=== PATIENT | female | born 1990 | race Caucasian/White ===

== ENCOUNTER 2016-11-04 12:41 | Emergency (ER) | payer MEDICAID ==
[2016-11-04] MEDS ORDERED: IBUPROFEN 800 MG TABLET PO ONE (13:01)
--- NOTE | 2016-11-04 13:44 | RADIOLOGY REPORT (SQ) ---
EXAM DESCRIPTION: TOE RIGHT COMPLETED DATE/TIME: 11/04/2016 1:20 pm REASON FOR STUDY: r 4th toe, iron fell on toe COMPARISON: None. NUMBER OF VIEWS: Three views. TECHNIQUE: AP and oblique images acquired of the right fourth toe. LIMITATIONS: None. FINDINGS: MINERALIZATION: Normal. BONES: There is a subtle oblique lucency at the level of the middle phalanx of the 4th digit which I cannot exclude as fracture. Clinical correlation is recommended. No other evidence for fracture is seen. JOINTS: No effusions. SOFT TISSUES: No soft tissue swelling. No foreign body. OTHER: No other significant finding. IMPRESSION: Subtle oblique lucency at the level of the middle phalanx of the 4th digit which I canno t exclude as a fracture. Clinical correlation is recommended. Other findings as noted above COMMENT: SITE OF TRAUMA/COMPLAINT MARKED/STAMP COMPLETED: No TECHNICAL DOCUMENTATION: JOB ID: [id number] [employer]- All Rights Reserved
[2016-11-04 14:06] VITALS: BP 110/63
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
== END 2016-11-04 14:15 | disposition home or self-care (01) ==
LOC: ER 12:41
DX: S92.524A Nondisplaced fracture of middle phalanx of right lesser toe(s), initial encounter for closed fracture (principal); W20.8XXA Other cause of strike by thrown, projected or falling object, initial encounter; F17.200 Nicotine dependence, unspecified, uncomplicated
CPT/HCPCS: 99283; 73660; J3490

== ENCOUNTER 2017-11-18 16:30 | Emergency (ER) | payer SELFPAY ==
[2017-11-18] MEDS ORDERED: TETRACAINE HCL 0.5% OPH SOLN 2 ML OS ONE (16:54)
--- NOTE | 2017-11-18 16:55 | ER Document Report ---
HPI - HPI Patient complains to provider of: left eye irritation Onset: Other Quality of pain: Achy - irritated Severity: Moderate Pain Level: 3 Context: She presents to the emergency department with complaints of left eye irritation and drainage. Patient reports approximately 3 days ago her eye started feeling weird. She took out her contacts. She reports increased irritation since that time. Denies other symptoms such as fever vomiting diarrhea Associated Symptoms: None Exacerbated by: Denies Relieved by: Denies Similar symptoms previously: No Recently seen / treated by doctor: No - EENT EENT: REPORTS: Eye problems - REPRODUCTIVE Reproductive: REPORTS: : Past Medical History - General Information source: Patient - Social History Smoking Status: Current Every Day Smoker Chew tobacco use (# tins/day): No Frequency of alcohol use: Rare Drug Abuse: None Family History: Reviewed & Not Pertinent Patient has suicidal ideation: No Patient has homicidal ideation: No Renal/ Medical History: Denies: Hx Peritoneal Dialysis Skin Medical History: Reports Hx Psoriasis Psychiatric Medical History: Reports: Hx Anxiety, Hx Depression Past Surgical History: Reports: Hx Oral Surgery - Immunizations Immunizations up to date: Yes Hx Diphtheria, Pertussis, Tetanus Vaccination: Yes Vertical Provider Document - CONSTITUTIONAL Agree With Documented VS: Yes Exam Limitations: No Limitations General Appearance: WD/WN, No Apparent Distress - INFECTION CONTROL TRAVEL OUTSIDE OF THE [place] IN LAST 30 DAYS: No - HEENT HEENT: Atraumatic, Normocephalic, PERRLA. negative: Conjuctival Injection - NECK Neck: Normal Inspection, Supple - RESPIRATORY Respiratory: No Respiratory Distress - CARDIOVASCULAR Cardiovascular: Regular Rate - MUSCULOSKELETAL/EXTREMETIES Musculoskeletal/Extremeties: MAEW, FROM - NEURO Level of Consciousness: Awake, Alert, Appropriate Motor/Sensory: No Motor Deficit - DERM Integumentary: Warm, Dry Course - Vital Signs Vital signs: Temp Pulse Resp BP Pulse Ox 98.8 F 105 H 16 118/72 99 11/18/17 16:39 11/18/17 16:39 11/18/17 16:39 11/18/17 16:39 11/18/17 16:39 Procedures - Eye Procedure Left Eye Irrigated w/ Saline (ccs): 10 Alcaine Drops Administered: Yes Fluorescein applied: Left Antibiotic Oinment/Drps Admin: Left eye Slit lamp used: No Notes: 11/18/17 18:20 elaine lamp utilized, pt reported immediate relief of irritation after tetracaine applied Discharge - Discharge Clinical Impression: Irritation of left eye Abrasion of conjunctiva, left Qualifiers: Encounter type: initial encounter Qualified Code(s): S05.02XA - Injury of conjunctiva and corneal abrasion without foreign body, left eye, initial encounter Condition: Stable Disposition: HOME, SELF-CARE Instructions: Erythromycin ([facility]), Opthalmology Additional Instructions: *You have been evaluated for eye irritation, Conjunctival abrasion *Use eye ointment as prescribed *Good hand washing *Do not wear your contacts until follow up with structural test engineer *Follow up with an structural test engineer *Return to ED for worsening condition, changes, needs Referrals: ADÁN ATKINSON MD [ACTIVE STAFF] - Follow up as needed
[2017-11-18 17:34] VITALS: BP 117/71
[2017-11-18] MEDS ORDERED: ERYTHROMYCIN 0.5% OPH OINTMENT 3.5 GM (ER DISP) OD SCH (18:00)
== END 2017-11-18 17:48 | disposition home or self-care (01) ==
LOC: ER 16:30
DX: S05.02XA Injury of conjunctiva and corneal abrasion without foreign body, left eye, initial encounter (principal); X58.XXXA Exposure to other specified factors, initial encounter; H57.8 Other specified disorders of eye and adnexa; F17.200 Nicotine dependence, unspecified, uncomplicated
CPT/HCPCS: 99283

== ENCOUNTER 2020-01-21 22:13 | Emergency (ER) | payer MEDICAID ==
[2020-01-21 22:23] VITALS: BP 145/82
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
[2020-01-22] MEDS ORDERED: LIDOCAINE 2% VISCOUS SOLN 15 ML UDCUP PO ONE (04:41)
== END 2020-01-22 05:05 | disposition home or self-care (01) ==
LOC: ER 22:13
DX: O9A.211 Injury, poisoning and certain other consequences of external causes complicating pregnancy, first trimester (principal); T65.891A Toxic effect of other specified substances, accidental (unintentional), initial encounter; T30.0 Burn of unspecified body region, unspecified degree; Y93.89 Activity, other specified; Y92.832 Beach as the place of occurrence of the external cause; O99.711 Diseases of the skin and subcutaneous tissue complicating pregnancy, first trimester; L40.9 Psoriasis, unspecified; O99.331 Smoking (tobacco) complicating pregnancy, first trimester; F17.200 Nicotine dependence, unspecified, uncomplicated; Z3A.01 Less than 8 weeks gestation of pregnancy
CPT/HCPCS: 99283; J3490

== ENCOUNTER 2020-04-23 13:54 | Emergency (ER) | payer MEDICAID ==
--- NOTE | 2020-04-23 15:51 | ER Document Report ---
ED Medical Screen (RME) - General Chief Complaint: Fall Injury Stated Complaint: FELL AND HIT HEAD Time Seen by Provider: 04/23/20 15:44 Primary Care Provider: ADÁN ATKINSON MD [Primary Care Provider] - Follow up as needed Mode of Arrival: Wheelchair Information source: Patient Notes: HPI; 29-year-old female presents to the emergency room after slip and fall at home hitting her head on the floor and passing out. States she has a laceration to the back of her head. Her tetanus is up-to-date. Planing of head and neck pain. No nausea, no vomiting. Denies any chance of . PE: Alert and oriented x3. PERRLA, EOMI negative for raccoon eyes, negative sheikh signs. Hematoma noted to the posterior scalp. Unable to fully evaluate laceration in triage. Nontender to cervical spine on palpation there is pain with lateral movement to the neck. There is no step-offs, no deformities noted. Lungs: Clear to auscultation without rales, rhonchi, wheezes. Heart: Tachycardic without murmurs, rubs, gallops. I have greeted and performed a rapid initial assessment of this patient. A comprehensive ED assessment and evaluation of the patient, analysis of test results and completion of the medical decision making process will be conducted by additional ED providers. I have specifically instructed the patient or family members with the patient to immediately return to any nursing staff should anything change in the patient's condition or with their chief complaint. TRAVEL OUTSIDE OF THE [place] IN LAST 30 DAYS: No - Related Data Allergies/Adverse Reactions: No Known Allergies Allergy (Verified 04/23/20 15:44) Past Medical History - Social History Frequency of alcohol use: Occasional Renal/ Medical History: Denies: Hx Peritoneal Dialysis Skin Medical History: Reports Hx Psoriasis Psychiatric Medical History: Reports: Hx Anxiety, Hx Depression Past Surgical History: Reports: Hx Oral Surgery - Immunizations Immunizations up to date: Yes Hx Diphtheria, Pertussis, Tetanus Vaccination: Yes Physical Exam - Vital signs Vitals: Temp Pulse Resp BP Pulse Ox 98.3 F 105 H 18 118/68 98 04/23/20 14:51 04/23/20 14:51 04/23/20 14:51 04/23/20 14:51 04/23/20 14:51 Course - Vital Signs Vital signs: Temp Pulse Resp BP Pulse Ox 98.3 F 105 H 18 118/68 98 04/23/20 14:51 04/23/20 14:51 04/23/20 14:51 04/23/20 14:51 04/23/20 14:51 Doctor's Discharge - Discharge Referrals: ADÁN ATKINSON MD [Primary Care Provider] - Follow up as needed
--- NOTE | 2020-04-23 17:23 | RADIOLOGY REPORT (SQ) ---
EXAM DESCRIPTION: CT HEAD WITHOUT IMAGES COMPLETED DATE/TIME: 04/23/2020 4:05 pm REASON FOR STUDY: head trauma. COMPARISON: None. TECHNIQUE: Axial images acquired through the brain without intravenous contrast. Images reviewed wi th bone, brain and subdural windows. Additional sagittal and coronal reconstructions were generated. Images stored on PACS. All CT scanners at this facility use dose modulation, iterative reconstruction, and/or weight based d osing when appropriate to reduce radiation dose to as low as reasonably achievable (ALARA). [facility]: Dose Right [facility]: CareDose [facility]: Dose Right [facility]: Teradose 4D [facility]: Greasebook RADIATION DOSE: mGy. LIMITATIONS: None. FINDINGS: VENTRICLES: Normal size and contour. CEREBRUM: No masses. No hemorrhage. No midline shift. No evidence for acute infarction. Normal gra y/white matter differentiation. No areas of low density in the white matter. CEREBELLUM: No masses. No hemorrhage. No alteration of density. No evidence for acute infarction. EXTRAAXIAL SPACES: No fluid collections. No masses. ORBITS AND GLOBE: No intra- or extraconal masses. Normal contour of globe without masses. CALVARIUM: No fracture. PARANASAL SINUSES: No fluid or mucosal thickening. SOFT TISSUES: No mass or hematoma. OTHER: No other significant finding. IMPRESSION: NO ACUTE INTRACRANIAL IMAGING FINDINGS. EVIDENCE OF ACUTE STROKE: NO. COMMENT: Quality ID # [id number]: Final reports with documentation of one or more dose reduction techniques (e.g., Automated exposure control, adjustment of the mA and/or kV according to patient size, use of iterative reconstruction technique) TECHNICAL DOCUMENTATION: JOB ID: [id number] 2010 [employer]- All Rights Reserved Reading location - IP/workstation name: [email or web address]
--- NOTE | 2020-04-23 17:23 | RADIOLOGY REPORT (SQ) ---
EXAM DESCRIPTION: CT CERVICAL SPINE WITHOUT IMAGES COMPLETED DATE/TIME: 04/23/2020 4:05 pm REASON FOR STUDY: head trauma COMPARISON: None. TECHNIQUE: Axial images acquired through the cervical spine without intravenous contrast. Images re viewed with lung, soft tissue and bone windows. Reconstructed coronal and sagittal MPR images review ed. Images stored on PACS. All CT scanners at this facility use dose modulation, iterative reconstruction, and/or weight based d osing when appropriate to reduce radiation dose to as low as reasonably achievable (ALARA). [facility]: Dose Right [facility]: CareDose [facility]: Dose Right [facility]: Teradose 4D [facility]: Smart 9+ RADIATION DOSE: CT Rad equipment meets quality standard of care and radiation dose reduction techniq ues were employed. CTDIvol: 22.9 - 48.8 mGy. DLP: 1461 mGy-cm. mGy. LIMITATIONS: None. FINDINGS: ALIGNMENT: Anatomic. MINERALIZATION: Normal. VERTEBRAL BODIES: No fractures or dislocation. DISCS: No significant disc disease. FACETS, LATERAL MASSES, POSTERIOR ELEMENTS: No fractures. No dislocation. No acute findings. HARDWARE: None in the spine. VISUALIZED RIBS: No fractures. LUNG APICES AND SOFT TISSUES: Azygos fissure is noted. Visualized lung apices are clear. OTHER: No other significant finding. IMPRESSION: No acute fracture or dislocation of the cervical spine. TECHNICAL DOCUMENTATION: JOB ID: [id number] Quality ID # [id number]: Final reports with documentation of one or more dose reduction techniques (e.g., Au tomated exposure control, adjustment of the mA and/or kV according to patient size, use of iterative reconstruction technique) 2010 [employer]- All Rights Reserved Reading location - IP/workstation name: [email or web address]
[2020-04-23] MEDS ORDERED: IBUPROFEN 600 MG TABLET PO ONE (19:29)
[2020-04-23] MEDS ORDERED: LIDOCAINE 1%/EPINEPHRINE INJ 20 ML VIAL INJ ONE (19:29)
--- NOTE | 2020-04-23 19:31 | ER Document Report ---
ED Fall - General Chief Complaint: Fall Injury Stated Complaint: FELL AND HIT HEAD Time Seen by Provider: 04/23/20 15:44 Primary Care Provider: ADÁN ATKINSON MD [Primary Care Provider] - Follow up as needed Mode of Arrival: Wheelchair Information source: Patient TRAVEL OUTSIDE OF THE [place] IN LAST 30 DAYS: No - HPI Patient complains to provider of: Head Injury Notes: Patient with complaints of head injury. The patient states she slipped on a broom at home on the tile floor causing her to fall backwards and hit the back of her head on a tile floor. She states she had a brief loss of consciousness. She is on no blood thinning medications. She does complain of a headache. She denies any blurred or loss of vision. She denies unilateral numbness, tingling, weakness. She does complain of some mild neck pain. No back pain. No chest pain or shortness of breath. No abdominal pain. She had nausea, but denies any vomiting or diarrhea. She denies any rashes. Immunizations are up-to-date. She denies any other injuries or complaints at this time. Headache is moderate to severe, constant, nothing makes it better or worse. - Related data Allergies/Adverse Reactions: No Known Allergies Allergy (Verified 04/23/20 15:44) Past Medical History - General Information source: Patient - Social History Smoking Status: Current Every Day Smoker Frequency of alcohol use: Occasional Drug Abuse: None Family History: Reviewed & Not Pertinent Patient has homicidal ideation: No Renal/ Medical History: Denies: Hx Peritoneal Dialysis Skin Medical History: Reports Hx Psoriasis Psychiatric Medical History: Reports: Hx Anxiety, Hx Depression Past Surgical History: Reports: Hx Oral Surgery - Immunizations Immunizations up to date: Yes Hx Diphtheria, Pertussis, Tetanus Vaccination: Yes Review of Systems - Review of Systems -: Yes All other systems reviewed and negative Physical Exam - Vital signs Vitals: Temp Pulse Resp BP Pulse Ox 98.3 F 105 H 18 118/68 98 04/23/20 14:51 04/23/20 14:51 04/23/20 14:51 04/23/20 14:51 04/23/20 14:51 - Notes Notes: GENERAL: alert, cooperative, nontoxic, no distress. HEAD: normocephalic, 5 cm horizontal laceration to the posterior scalp. No active bleeding. No foreign body. No depression. Tenderness to palpation. EYES: conjunctiva pink without discharge, no external redness or swelling. PERRL, EOM'S INTACT EARS: no external swelling, no external redness. No hemotympanum EM NOSE: atraumatic, no external swelling. No bleeding MOUTH/THROAT: mucous membranes moist and pink, posterior pharynx without erythema, swelling, exudate. No trismus or drooling. NECK: soft, supple, full range of motion, no meningismus. No midline tenderness step-offs or crepitus to palpation of the cervical spine. CHEST: no distress, lungs clear and equal throughout. No wheezing, rales, rhonchi. CARDIAC: regular rate and rhythm, no murmur, normal capillary refill, normal pulses. No peripheral edema noted. BACK: full range of motion, no CVA tenderness. No midline tenderness step-offs or crepitus to palpation of the thoracic or lumbar spine. EXTREMITIES: full range of motion of all extremities. No redness, no swelling. NEURO: alert and oriented x 3, no focal deficits, full range of motion of all extremities. Cranial nerves II through XII are grossly intact. Normal sensation bilaterally. Normal strength bilaterally. PYSCH: appropriate mood, affect. Patient is cooperative. SKIN: pink, warm, dry, no rash. Course - Re-evaluation Re-evalutation: 04/23/20 19:51 Patient resting comfortably at this time. Laceration has been repaired. Patient was given ibuprofen. Patient will be discharged home. Patient is nontoxic-appearing with stable vitals. Here with complaints of head laceration. The patient states she stepped on a broom on a tile floor causing her to fall and hit the back of her head on a tile floor. She does report approximately 3 minutes of loss of consciousness and is complaining of a severe headache initially. She has a nonfocal neuro exam. No vomiting. No fevers. Tetanus is up-to-date. She is noted to have a laceration to the posterior scalp. She has no midline tenderness, step-offs or crepitus of the cervical spine. Remainder of her exam is unremarkable for any significant abnormalities. Patient had a CT of the brain as well as cervical spine which were negative for any acute findings. Patient had 5 twyla placed to the laceration. Patient be discharged home with wound care instructions. Follow-up for increased pain, fever, redness, drainage, numbness, tingling, weakness, any further concerns. The patient's emergency department workup and current diagnosis were explained to the patient and or family. Follow-up instructions were provided. Medications if prescribed were discussed. Instructions for when to return to the emergency department including specific worrisome symptoms were discussed with the patient and/or family. - Vital Signs Vital signs: Temp Pulse Resp BP Pulse Ox 98.3 F 105 H 18 118/68 98 04/23/20 14:51 04/23/20 14:51 04/23/20 14:51 04/23/20 14:51 04/23/20 14:51 - Laboratory Results Critical Laboratory Results Reviewed: No Critical Results - Radiology Results Critical Radiology Results Reviewed: No Critical Results Procedures - Laceration/Wound Repair Head Wound length (cm): 5 Wound's Depth, Shape: Superficial, Linear Laceration pre-procedure: Sterile PPE donned, Shur-Clens applied Anesthetic type: 1% Lidocaine w/epi Wound explored: Clean, No foreign body removed Wound Repaired With: Twyla Number of Sutures: 5 Post-procedure NV exam normal: Yes Complications: No Discharge - Discharge Clinical Impression: Head injury, closed, with brief LOC Cervical myofascial strain Qualifiers: Encounter type: initial encounter Qualified Code(s): S16.1XXA - Strain of muscle, fascia and tendon at neck level, initial encounter Scalp laceration Qualifiers: Encounter type: initial encounter Qualified Code(s): S01.01XA - Laceration without foreign body of scalp, initial encounter Condition: Stable Disposition: HOME, SELF-CARE Instructions: Laceration Care ([facility]), Head Injury Precautions ([facility]) Additional Instructions: Take Tylenol Motrin as needed for pain. Drink plenty of fluids. Apply ice to sore. Follow-up in 7 days for staple removal. Follow-up sooner for worsening pain, fever, redness, drainage, severe headache, persistent vomiting, or for any further concerns. Referrals: ADÁN ATKINSON MD [Primary Care Provider] - Follow up as needed
[2020-04-23 19:54] VITALS: BP 112/66
== END 2020-04-23 20:05 | disposition home or self-care (01) ==
LOC: ER 13:54
DX: S06.9X9A Unspecified intracranial injury with loss of consciousness of unspecified duration, initial encounter (principal); S01.01XA Laceration without foreign body of scalp, initial encounter; R51.9 Headache, unspecified; M54.2 Cervicalgia; W01.0XXA Fall on same level from slipping, tripping and stumbling without subsequent striking against object, initial encounter; Y92.009 Unspecified place in unspecified non-institutional (private) residence as the place of occurrence of the external cause; R11.0 Nausea; F17.200 Nicotine dependence, unspecified, uncomplicated
CPT/HCPCS: 99284; 70450; 72125; 12002; J3490 ×2